=== PATIENT | female | born 1955 | race Caucasian/White ===

== ENCOUNTER 2016-09-06 16:52 | Emergency (ER) | payer OTHER ==
[~2016-09-06] VITALS: Wt 80.4 kg
[~2016-09-06 16:52] MED LIST: ALBU8.5H3 INH; LOSA50TA6 PO; MECL25TA2 PO; ONDA4TAB8 PO
[2016-09-06] MEDS ORDERED: ALBUTEROL 0.5% (NEB) 2.5 MG/0.5 ML AMP HHN STA (17:46)
[2016-09-06] MEDS ORDERED: KETOROLAC 30 MG INJ IM STA (17:46)
[2016-09-06] MEDS ORDERED: HYDROCODONE/APAP (5/325) TAB PO ONE (18:00)
[2016-09-06] MEDS ORDERED: predniSONE 20 MG TAB PO ONE (18:00)
--- NOTE | 2016-09-06 18:50 | RADRPT ---
PROCEDURE: XR Ribs. CLINICAL INDICATION: Blunt trauma to right ribs. TECHNIQUE: Four views of the chest and right ribs were obtained. COMPARISON: Chest x-ray 09/10/2015 FINDINGS: No rib fracture or other focal lesion is identified. The underlying lungs are unremarkable, without pleural effusion or pneumothorax seen. RPTAT:HJJR IMPRESSION: Unremarkable chest and right rib series. Jose Rivera Physician Date Time Electronically viewed and signed by Jose Rivera Physician on 09/06/2016 18:49 /
[2016-09-06] MEDS ORDERED: IBUP-1542 PO (19:13)
[2016-09-06] MEDS ORDERED: PRED20TA PO (19:13)
[2016-09-06] MEDS ORDERED: HYDR-906 PO (19:13)
[2016-09-06] MEDS ORDERED: ALBU18HF INHALATION (19:13)
--- NOTE | 2016-09-06 19:16 | ERD ---
ER Documentation Chief Complaint Date/Time DATE: 09/06/16 TIME: 19:15 Chief Complaint R SIDE RIB PAIN FROM BLUNT TRAUMA YESTERDAY. PAIN ON INSPIRATION HPI This 61-year-old female complains of right rib pain after leaning over and hitting a washing machine or doing laundry. She has a history of asthma and complains of wheezing as well. She denies any hemoptysis, fevers, anterior chest pain, abdominal pain. The pain is in her right lower ribs. ROS All systems reviewed and are negative except as per history of present illness. Medications Home Meds Active Scripts Albuterol Sulfate* (Ventolin HFA*) 18 Gm Hfa.aer.ad, 2 PUFF INHALATION Q4H, #1 INHALER Prov:OSEI BALLESTEROS MD 09/06/16 Prednisone* (Prednisone*) 20 Mg Tab, 40 MG PO DAILY for 4 Days, TAB Start September 07, 2016 Prov:OSEI BALLESTEROS MD 09/06/16 Hydrocodone/Acetaminophen ([place] 5-325 Tablet) 1 Each Tablet, 1 TAB PO Q6H Y for PAIN, #12 TAB Prov:OSEI BALLESTEROS MD 09/06/16 Ibuprofen* (Motrin*) 600 Mg Tab, 600 MG PO Q6, #18 TAB Prov:OSEI BALLESTEROS MD 09/06/16 Albuterol Sulfate* (Proair HFA*) 8.5 Gm Hfa.aer.ad, 2 PUFF INH Q4, #1 INHALER Prov:SHAI CLAY MD 09/10/15 Ondansetron Hcl* (Zofran*) 4 Mg Tablet, 4 MG PO Q6H for NAUSEA AND/OR VOMITING, #14 TAB Prov:SHAI CLAY MD 09/10/15 Meclizine Hcl* (Antivert*) 25 Mg Tablet, 25 MG PO Q6H for DIZZINESS, #20 TAB Prov:SHAI CLAY MD 09/10/15 Reported Medications Losartan Potassium* (Losartan Potassium*) 50 Mg Tablet, 50 MG PO DAILY 07/19/13 Allergies Allergies: Coded Allergies: ciprofloxacin (Verified Allergy, Unknown, 09/10/15) PMhx/Soc History of Surgery: Yes (APPENDECTOMY) Anesthesia Reaction: No Hx Neurological Disorder: No Hx Respiratory Disorders: Yes (ASTHMA) Hx Cardiac Disorders: No Hx Psychiatric Problems: No Hx Miscellaneous Medical Probl: Yes (HTN, FATTY LIVER,GASTRITIS) Hx Alcohol Use: No Hx Substance Use: No Hx Tobacco Use: No Smoking Status: Never smoker Physical Exam Vitals Vital Signs Date Time Temp Pulse Resp B/P Pulse Ox O2 Delivery O2 Flow Rate FiO2 09/06/16 18:06 84 20 96 21 09/06/16 17:24 98.5 81 20 141/83 96 Physical Exam Const: [] Alert, spa-hli-epmohuact per Head: Atraumatic Eyes: Normal Conjunctiva ENT: Normal External Ears, Nose and Mouth. Neck: Full range of motion..~ No meningismus. Resp: Scattered wheezing bilaterally. No rales. There are some tender on the right T10 rib area. There is no crepitance or bruising. Cardio: Regular rate and rhythm, no murmurs Abd: Soft, non tender, non distended. Normal bowel sounds Skin: No petechiae or rashes Back: No midline or flank tenderness Ext: No cyanosis, or edema Neur: Awake and alert Psych: Normal Mood and Affect Results 24 hrs Current Medications Medications (Trade) Dose Ordered Sig/Cyndie Route PRN Reason Start Time Stop Time Status Last Admin Dose Admin Prednisone (Prednisone) 60 mg ONCE ONCE PO 09/06/16 18:00 09/06/16 18:01 DC 09/06/16 18:00 Albuterol (Proventil 0.5% (Neb)) 5 mg ONCE STAT HHN 09/06/16 17:46 09/06/16 17:48 DC 09/06/16 18:05 Ketorolac Tromethamine (Toradol) 30 mg ONCE STAT IM 09/06/16 17:46 09/06/16 17:48 DC 09/06/16 18:00 Acetaminophen/ Hydrocodone Bitart ([place] (5/325)) 1 tab ONCE ONCE PO 09/06/16 18:00 09/06/16 18:01 DC 09/06/16 18:00 Procedures/MDM Patient was given prednisone 60 mg of mouth and albuterol treatment. Patient given [place] 5 mg by mouth and Toradol 30 mg IM X-ray right ribs 2V Interpreted by me: Soft Tissue: No acute abnormalities Bones: No acute abnormalities Mediastinum/Cardiac Silhouette/Lungs: [No acute abnormalities]. Impression- normal right rib x-ray Patient presents with asthma exacerbation and right rib contusion. Signs or symptoms do not suggest pulmonary embolism, pneumonia, fracture, respiratory distress, acute abdomen. She will treated a short course prednisone, [place], Ventolin and ibuprofen. The patient was stable with no new complaints during the ER course. Clinically, there is no current evidence to suggest meningitis, sepsis, acute abdomen, pneumonia, acute coronary syndrome, pulmonary embolism, or any other emergent condition appearing to require further evaluation or hospitalization. The patient should certainly return for any new or worsening symptoms per the aftercare instructions. They should otherwise follow-up with her primary care doctor for reevaluation this week. Departure Diagnosis: Primary Impression: Rib injury Additional Impression: Asthma exacerbation Condition: Stable Patient Instructions: Asthma, Acute (Adult), Rib Contusion Additional Instructions: X-ray normal. Cheque otro vez con diggs doctor primario en el proximo maldonado or regresa para mas o nueva simptomas. OSEI BALLESTEROS MD Sep 06, 2016 19:16
[2016-09-06 19:26] VITALS: BP 135/78; PULSE 86; RESP 20; TEMP 98.4
== END 2016-09-06 19:28 | disposition home or self-care (01) ==
LOC: FTE 16:52
DX: S29.9XXA Unspecified injury of thorax, initial encounter (principal); J45.901 Unspecified asthma with (acute) exacerbation; I10 Essential (primary) hypertension; W22.8XXA Striking against or struck by other objects, initial encounter; Y92.9 Unspecified place or not applicable
CPT/HCPCS: 71100; 94664; 96372; J1885; J7512; Z7502; Z7610

== ENCOUNTER 2017-05-26 19:49 | Inpatient (IN) | payer OTHER ==
[~2017-05-26] VITALS: Ht 154.9 cm; Wt 82.6 kg
[~2017-05-26 19:49] MED LIST changes: +ALBU18HF INHALATION; +HYDR-906 PO; +IBUP-1542 PO; +PRED20TA PO
[2017-05-26] MEDS ORDERED: KETOROLAC 30 MG INJ IV STA (20:59)
[2017-05-26] MEDS ORDERED: SOD CHLORIDE 0.9% 1,000 ML IV ONE (21:00)
--- NOTE | 2017-05-26 21:53 | RADRPT ---
PROCEDURE: XR Chest. CLINICAL INDICATION: Sepsis TECHNIQUE: Single frontal chest x-ray. COMPARISON: CR CHEST 09/06/2016 FINDINGS: No acute infiltrate, pleural effusion or pneumothorax is identified. Cardiomediastinal silhouette i s within normal limits. Aortic atherosclerotic calcification is noted. The osseous structures are u nremarkable. IMPRESSION: 1. No evidence of acute cardiopulmonary process. 2. Aortic atherosclerosis. RPTAT: HDWR .Juan Jose Guerra MD, MD Date Time Electronically viewed and signed by .Juan Jose Guerra MD, MD on 05/26/2017 21:53 .R/
[2017-05-26 22:10] LABS: ABNORMAL IP MESSAGE 1; BASOPHILS % 0.3 % (0.0-2.0); EOSINOPHILS # 0.4 10^3/ul (0.0-0.5); EOSINOPHILS % 3.7 % (0.0-7.0); HEMATOCRIT 43.5 % (37.0-47.0); HEMOGLOBIN 14.7 g/dl (12.0-16.0); LYMPHOCYTES # 0.5 10^3/ul (0.8-2.9); MEAN CORPUSCULAR HEMOGLOBIN 29.9 pg (29.0-33.0); MEAN CORPUSCULAR HGB CONC 33.8 g/dl (32.0-37.0); MEAN CORPUSCULAR VOLUME 88.6 fl (82.0-101.0); MEAN PLATELET VOLUME 12.4 fl (7.4-10.4); MONOCYTE # 0.6 10^3/ul (0.3-0.9); MONOCYTES % 6.6 % (0.0-11.0); NEUTROPHIL # 8.1 10^3/ul (1.6-7.5); NEUTROPHILS % 83.9 % (39.0-77.0); PLATELET COUNT 105 10^3/UL (140-415); RED BLOOD COUNT 4.91 10^6/ul (4.20-5.40); RED CELL DISTRIBUTION WIDTH 13.5 % (11.5-14.5); WHITE BLOOD COUNT 9.6 10^3/ul (4.8-10.8)
[2017-05-26 22:12] LABS: POSITIVE DIFF @See below
[2017-05-26 22:18] LABS: ADD UMIC YES; UR ASCORBIC ACID NEGATIVE (NEGATIVE); UR BILIRUBIN (Dip) NEGATIVE (NEGATIVE); UR BLOOD (Dip) NEGATIVE (NEGATIVE); UR CLARITY CLEAR (CLEAR); UR COLOR AMBER (YELLOW); UR GLUCOSE (Dip) NEGATIVE (NEGATIVE); UR KETONES (Dip) TRACE mg/dL (NEGATIVE); UR LEUKOCYTE ESTERASE (Dip) TRACE Leu/ul (NEGATIVE); UR MUCUS FEW /HPF (NONE SEEN); UR NITRITE (Dip) NEGATIVE (NEGATIVE); UR RBC 4 /HPF (0-5); UR SPECIFIC GRAVITY (Dip) 1.021 (1.003-1.030); UR SQUAMOUS EPITHELIAL CELL FEW /HPF (FEW); UR TOTAL PROTEIN (Dip) 1+ mg/dl (NEGATIVE); UR UROBILINOGEN (Dip) 2+ mg/dL (NEGATIVE)
[2017-05-26] MEDS ORDERED: CEFEPIME 2GM/50 ML (PMX) 50 ML IVPB ONE (22:30)
[2017-05-26 22:32] LABS: INR 1.18; PARTIAL THROMBOPLASTIN TIME 36.8 Sec (25.0-35.0); PROTIME 15.1 Sec (12.2-14.2); PT RATIO 1.2
[2017-05-26 22:36] LABS: ALANINE AMINOTRANSFERASE 63 IU/L (13-69); ALBUMIN 4.4 g/dl (3.3-4.9); ALBUMIN/GLOBULIN RATIO 1.29; ALKALINE PHOSPHATASE 95 IU/L (42-121); ANION GAP 18 (8-16); ASPARTATE AMINO TRANSFERASE 54 IU/L (15-46); BILIRUBIN,INDIRECT 1.2 mg/dl (0-1.1); BILIRUBIN,TOTAL 1.2 mg/dl (0.2-1.3); BLOOD UREA NITROGEN 7 mg/dl (7-20); CALCIUM 8.5 mg/dl (8.4-10.2); CARBON DIOXIDE 23 mmol/L (21-31); CHLORIDE 101 mmol/L (97-110); CREATININE 0.62 mg/dl (0.44-1.00); GLUCOSE 120 mg/dl (70-220); POTASSIUM 4.3 mmol/L (3.5-5.1); SODIUM 138 mmol/L (135-144); TOTAL PROTEIN 7.8 g/dl (6.1-8.1)
[2017-05-26 22:47] LABS: TROPONIN-I < 0.012 ng/ml (0.00-0.12)
--- NOTE | 2017-05-26 23:17 | ERD ---
ER Documentation Chief Complaint Chief Complaint headache/body aches/fever/cough since yesterday HPI This 62-year-old female presents with generalized body aches in her joints occluding a headache. Her primary care doctor sent her primarily for the headache. She is also had a cough for 2 days. She is also been on 2 different antibiotics for 2 weeks for urinary tract infection. She has had fevers and chills at home. She feels very "sick". She has not had any neurological symptoms. She has had no head trauma. ROS All systems reviewed and are negative except as per history of present illness. Medications Home Meds Active Scripts Albuterol Sulfate* (Ventolin HFA*) 18 Gm Hfa.aer.ad, 2 PUFF INHALATION Q4H, #1 INHALER Prov:OSEI BALLESTEROS MD 09/06/16 Prednisone* (Prednisone*) 20 Mg Tab, 40 MG PO DAILY for 4 Days, TAB Start September 07, 2016 Prov:OSEI BALLESTEROS MD 09/06/16 Hydrocodone/Acetaminophen ([place] 5-325 Tablet) 1 Each Tablet, 1 TAB PO Q6H Y for PAIN, #12 TAB Prov:OSEI BALLESTEROS MD 09/06/16 Ibuprofen* (Motrin*) 600 Mg Tab, 600 MG PO Q6, #18 TAB Prov:OSEI BALLESTEROS MD 09/06/16 Albuterol Sulfate* (Proair HFA*) 8.5 Gm Hfa.aer.ad, 2 PUFF INH Q4, #1 INHALER Prov:SHAI CLAY MD 09/10/15 Ondansetron Hcl* (Zofran*) 4 Mg Tablet, 4 MG PO Q6H for NAUSEA AND/OR VOMITING, #14 TAB Prov:SHAI CLAY MD 09/10/15 Meclizine Hcl* (Antivert*) 25 Mg Tablet, 25 MG PO Q6H for DIZZINESS, #20 TAB Prov:SHAI CLAY MD 09/10/15 Reported Medications Losartan Potassium* (Losartan Potassium*) 50 Mg Tablet, 50 MG PO DAILY 07/19/13 Allergies Allergies: Coded Allergies: ciprofloxacin (Verified Allergy, Unknown, 09/10/15) PMhx/Soc History of Surgery: Yes (APPENDECTOMY) Anesthesia Reaction: No Hx Neurological Disorder: No Hx Respiratory Disorders: Yes (ASTHMA) Hx Cardiac Disorders: No Hx Psychiatric Problems: No Hx Miscellaneous Medical Probl: Yes (HTN, FATTY LIVER,GASTRITIS, HERNIATED DISC ) Hx Alcohol Use: No Hx Substance Use: No Hx Tobacco Use: No Smoking Status: Never smoker Physical Exam Vitals Vital Signs Date Time Temp Pulse Resp B/P Pulse Ox O2 Delivery O2 Flow Rate FiO2 05/26/17 20:07 102.3 112 20 136/82 95 Physical Exam Const: [] Moderate distress, very uncomfortable Head: Atraumatic Eyes: Normal Conjunctiva EOMI, PERRLA ENT: Normal External Ears, Nose and Mouth. Neck: Full range of motion..~ No meningismus. Resp: Clear to auscultation bilaterally Cardio: Regular tachycardia, no murmurs Abd: Soft, non tender, non distended. Normal bowel sounds Skin: No petechiae or rashes, warm to the touch Back: No midline or flank tenderness Ext: No cyanosis, or edema Neur: Awake and alert and oriented 3, cranial nerves II 12 intact, no cerebellar deficits. Psych: Normal Mood and Affect Result Diagram: 05/26/17214605/26/172141 Results 24 hrs Laboratory Tests Test 05/26/17 19:18 05/26/17 21:42 05/26/17 21:47 Urine Color NOAH Urine Clarity CLEAR Urine pH 6.0 Urine Specific [place] 1.021 Urine Ketones TRACEmg/dL Urine Nitrite NEGATIVEmg/dL Urine Bilirubin NEGATIVEmg/dL Urine Urobilinogen 2+mg/dL Urine Leukocyte Esterase TRACELeu/ul Urine Microscopic RBC 4/HPF Urine Microscopic WBC 12/HPF Urine Squamous Epithelial Cells FEW/HPF Urine Mucus FEW/HPF Urine Hemoglobin NEGATIVEmg/dL Urine Glucose NEGATIVEmg/dL Urine Total Protein 1+mg/dl Prothrombin Time 15.1Sec Prothrombin Time Ratio 1.2 INR International Normalized Ratio 1.18 Activated Partial Thromboplast Time 36.8Sec Sodium Level 138mmol/L Potassium Level 4.3mmol/L Chloride Level 101mmol/L Carbon Dioxide Level 23mmol/L Anion Gap 18 Blood Urea Nitrogen 7mg/dl Creatinine 0.62mg/dl Glucose Level 120mg/dl Lactic Acid Level 3.0mmol/L Calcium Level 8.5mg/dl Total Bilirubin 1.2mg/dl Direct Bilirubin 0.00mg/dl Indirect Bilirubin 1.2mg/dl Aspartate Amino Transf (AST/SGOT) 54IU/L Alanine Aminotransferase (ALT/SGPT) 63IU/L Alkaline Phosphatase 95IU/L Troponin I < 0.012ng/ml Total Protein 7.8g/dl Albumin 4.4g/dl Globulin 3.40g/dl Albumin/Globulin Ratio 1.29 White Blood Count 9.610^3/ul Red Blood Count 4.9110^6/ul Hemoglobin 14.7g/dl Hematocrit 43.5% Mean Corpuscular Volume 88.6fl Mean Corpuscular Hemoglobin 29.9pg Mean Corpuscular Hemoglobin Concent 33.8g/dl Red Cell Distribution Width 13.5% Platelet Count 01526^3/UL Mean Platelet Volume 12.4fl Neutrophils % 83.9% Lymphocytes % 5.0% Monocytes % 6.6% Eosinophils % 3.7% Basophils % 0.3% Nucleated Red Blood Cells % 0.0/100WBC Neutrophils # 8.110^3/ul Lymphocytes # 0.510^3/ul Monocytes # 0.610^3/ul Eosinophils # 0.410^3/ul Basophils # 0.010^3/ul Nucleated Red Blood Cells # 0.010^3/ul Current Medications Medications (Trade) Dose Ordered Sig/Cyndie Route PRN Reason Start Time Stop Time Status Last Admin Dose Admin Sodium Chloride (NS) 1,000 ml @ 1,000 mls/hr Q1H ONCE IV 05/26/17 21:00 05/26/17 21:59 DC 05/26/17 21:54 Ketorolac Tromethamine 30 mg 30 mg ONCE STAT IV 05/26/17 20:59 05/26/17 21:01 DC 05/26/17 21:54 Cefepime HCl (Maxipime 2gm/50 ml (Pmx)) 50 ml @ 100 mls/hr ONCE ONCE IVPB 05/26/17 22:30 05/26/17 22:59 DC 05/26/17 22:44 Procedures/MDM UTI with sepsis and probable concomitant upper respiratory infection. Also severe headache. Patient was given more than 30 cc/kg of IV fluids started on cefepime. Cultures were taken lactate is elevated at 3. She initially given Toradol. I am also going perform a CT of her headache because she still has it. Given Benadryl and Reglan for headache cocktail. She is going to be admitted for IV antibiotics, urine culture to isolate the semi-resistant bacteria. Panel Dr. Cedeno is admitting. EKG interpretation sinus tachycardia rate of 114, left axis deviation, no ST or T-wave changes concerning for acute ischemia. a p manager interpretation: Sinus tachycardia followed by normal sinus rhythm no arrhythmias. Chest x-ray interpretation: I see no acute process. There is cardiomegaly. I see no infiltrate, no pneumothorax, no widened mediastinum, no fractures. Critical care time greater than 35 minutes: This includes treatment of UTI with sepsis and intractable headache, treatment of unstable vital signs, careful fluid administration, antibiotic therapy, multiple space bedside to reassess status and explained things to both herself and her , chart review, discussion with admitting doctor. This does not include any billable procedures Departure Diagnosis: Primary Impression: Failure of outpatient treatment Additional Impressions: Sepsis secondary to UTI URI, acute Lactic acidosis Acute headache Condition: Serious RY REEVES DO May 26, 2017 23:10
[2017-05-26] MEDS ORDERED: DIPHENHYDRAMINE 50 MG INJ IV ONE (23:30)
[2017-05-26] MEDS ORDERED: METOCLOPRAMIDE 10 MG INJ IV ONE (23:30)
[2017-05-27] MEDS ORDERED: ACETAMINOPHEN 325 MG TAB PO ONE (00:30)
[2017-05-27] MEDS ORDERED: LEVOFLOXACIN 750MG/D5W (PMX) 150 ML IVPB SCH (01:00)
[2017-05-27] MEDS ORDERED: ONDANSETRON 4 MG INJ IV PRN ×2 (01:00)
[2017-05-27] MEDS ORDERED: NACL 0.9% 3 ML SYG IV SCH (01:00)
[2017-05-27] MEDS ORDERED: MECLIZINE 25 MG TAB PO SCH (01:00)
[2017-05-27] MEDS ORDERED: ALBUTEROL HFA 8 GM INHALER INH SCH ×2 (01:00→21:00)
[2017-05-27] MEDS ORDERED: ACETAMINOPHEN 325 MG TAB PO PRN ×2 (01:00)
[2017-05-27] MEDS ORDERED: KETOROLAC 30 MG INJ IV PRN (01:00)
[2017-05-27] MEDS ORDERED: PROVENTIL HFA 6.7GM INHALER INH SCH (01:00)
--- NOTE | 2017-05-27 01:07 | HP ---
Date/Time of Note Date/Time of Note DATE: 05/27/17 TIME: 00:57 Assessment/Plan VTE Prophylaxis VTE Prophylaxis Intervention: SCD's Assessment/Plan Chief Complaint/Hosp Course This is a 62 F who is being admitted to the med surg floor for: #1 Sepsis: Initial lactate was 3.0 which subsequently improved to 1.1 with fluids and abx. At the current time on Cefepime in the ED will continue this as patient is allergic to cipro and she failed outpatient treatment for uti though the medications were not able to be confirmed at this time. She also has upper respiratory symptoms. Her influenza panel is negative. No signs of PNA. Will await results of blood and urine cultures. Chest x-ray is normal. #2 UTI: Patient denies any current urinary symptoms. She does have trace leukocytes in the urine. Will check a urine culture. Continue cefepime at this time. Await blood and urine cultures. #3 headache: CT of the head is negative. We could be secondary to patient underlying infection. She reported improvement of the headache with Toradol and Tylenol. Will continue monitor this for now. No new focal neurological signs at this time. #4 asthma: Patient is currently not wheezing. We will continue patient's home inhalers. Chest x-ray is within normal values. Patient could also have a possibly of underlying viral illness such as a bronchitis and she does report a cough. Will continue to monitor this. She is already on cefepime and if any signs of any bacterial upper respiratory infection will initiate antibiotics as indicated. #5 HTN: We will continue patient home medication. #6 transaminitis: This likely could be stress/infection related we will nonetheless obtain right upper quadrant ultrasound continue to monitor liver function tests. #7 DVT GI prophylaxis: SCDs, no GI prophylaxis indicated. Further treatment strategy will be implemented as per the clinical course. Problems: HPI/ROS Admit Date/Time Admit Date/Time Hx of Present Illness cc: headache, subjective fever This 62-year-old female presents with generalized body aches in her joints and a headache. Her primary care doctor sent her primarily for the headache. She is also had a cough for 2 days. She is also been on 2 different antibiotics for 2 weeks for urinary tract infection. She has had fevers and chills at home. She feels very "sick". She has not had any neurological symptoms. She has had no head trauma. She does not recall which antibiotics she took for the UTI. Allergies: ciprofloxacin Medications: See SEP ROS Const: As per HPI Eyes : No pain discharge or redness or change in visual acuity ENT: No pain, sore throat, congestion, congestion, dysphagia or discharge Respiratory: As per HPI Cardiovascular: No chest pain, palpitation, PND, or edema GI : no change in appetite, abdominal pain, nausea, vomiting, diarrhea, constipation, or change in the color his stool Genitourinary: No dysuria, hematuria, flank pain , discharge or CVA tenderness Musculoskeletal: No joint pain, back pain, neck pain, restricted range of motion in neck or joints Skin: No rash, bruising or hives Neuro: No headache, dizziness, syncope, seizure, focal weakness Endocrine: No polyuria, polydipsia, temperature intolerance Psych: No hallucination, depression, anxiety or suicidal ideation PMH/Family/Social Past Medical History asthma, htn, gastritis, lumbar disc disorder Past Surgical History appendicitis Family History Significant Family History: cancer (colon ca: mom, ), hypertension Social History Alcohol Use: none Smoking Status: Never smoker Drug Use: none Exam/Review of Systems Vital Signs Vitals Vital Signs Date Time Temp Pulse Resp B/P Pulse Ox O2 Delivery O2 Flow Rate FiO2 05/26/17 23:21 100.5 106 24 118/78 92 Room Air Exam Exam General: Patient is well-developed female sitting in bed in no acute distress HEENT: Atraumatic, normocephalic. The pupils are equal, round and reactive. Extraocular motor are intact Neck: Supple with full range of motion. No rigidity or meningismus Chest: Nontender Lungs: Clear to auscultation bilaterally no crackles rales or wheezing Heart: Normal S1-S2, Regular rhythm and rate. No murmur, S3, or S4 Abdomen: Soft , nontender, nondistended , bowel sounds are present. No guarding no rebound tenderness , No masses or organomegaly. No costovertebral temporal angle mass Extremities: Normal to inspection, no edema no cyanosis Neurologic: Normal mental status, speech normal, cranial nerves II through XII are intact, motor and sensory are intact, no focal weakness Additional Comments PROCEDURE: Noncontrast CT Head. CLINICAL INDICATION: Headache. TECHNIQUE: Noncontrast CT of the head was obtained. The administered radiation dose was CTDI vol = 44 mGy, DLP = 720 mGy-cm. One or more of the following dose reduction techniques were used: automated exposure control, adjustment of the mA and/or kV according to patient size and/or use of iterative reconstruction technique. DICOM images are available. COMPARISON: 09/10/2015 FINDINGS: The ventricles and cortical sulci are mild to moderately enlarged. There is mild to moderate decreased attenuation within the periventricular and subcortical white matter compatible with chronic microvascular changes. There is no acute intracranial hemorrhage or extra-axial fluid collection. There is no mass effect. No midline shift is identified. There is no loss of wilson-white differentiation to suggest acute infarction. The orbits are within normal limits. The paranasal sinuses are well aerated. No destructive osseous lesion is identified. IMPRESSION: No acute findings. Mild to moderate diffuse parenchymal volume loss and chronic microvascular changes. RPTAT: HIKT .Rolando Brady MD, Date Time Electronically viewed and signed by .Rolando Brady MD, on 05/27/2017 01:12 .T/ CC: RY REEVES DO PROCEDURE: XR Chest. CLINICAL INDICATION: Sepsis TECHNIQUE: Single frontal chest x-ray. COMPARISON: CR CHEST 09/06/2016 FINDINGS: No acute infiltrate, pleural effusion or pneumothorax is identified. Cardiomediastinal silhouette is within normal limits. Aortic atherosclerotic calcification is noted. The osseous structures are unremarkable. IMPRESSION: 1. No evidence of acute cardiopulmonary process. 2. Aortic atherosclerosis. RPTAT: HDWR .Juan Jose Guerra MD, Date Time Electronically viewed and signed by .Juan Jose Guerra MD, on 05/26/2017 21: 53 .R/ CC: DANIEL ESTRADA NP PROCEDURE: US Abdomen. CLINICAL INDICATION: Right upper quadrant Abdominal pain. Abnormal laboratory values. TECHNIQUE: Multiple real-time images were acquired of the patient's abdomen and retroperitoneum utilizing a high resolution transducer. COMPARISON: None FINDINGS: The liver demonstrates normal echogenicity and size and no focal lesions are seen. The liver measures 16 cm. No gallstones are identified within the gallbladder. There is no pericholecystic fluid or gallbladder wall thickening. No intra or extrahepatic biliary dilatation is seen. The common bile duct measures 3 mm in maximal dimension. The pancreas is not seen. The right kidney is unremarkable measuring 10 cm. No collecting system dilatation, stone or solid mass. IMPRESSION: Unremarkable examination. RPTAT: PP .Alexia Archer MD, MD Date Time Electronically viewed and signed by .Alexia Archer MD, MD on 05/27/2017 09:18 .F/ CC: JODI LESTER EKG interpretation sinus tachycardia rate of 114, left axis deviation, no ST or T-wave changes concerning for acute ischemia. As per ED physician documentation Labs Result Diagram: 05/26/17214605/26/172141 BIB LESTER May 27, 2017 01:07
--- NOTE | 2017-05-27 01:13 | RADRPT ---
PROCEDURE: Noncontrast CT Head. CLINICAL INDICATION: Headache. TECHNIQUE: Noncontrast CT of the head was obtained. The administered radiation dose was CTDI vol = 44 mGy, DLP = 720 mGy-cm. One or more of the following dose reduction techniques were used: automate d exposure control, adjustment of the mA and/or kV according to patient size and/or use of iterative reconstruction technique. DICOM images are available. COMPARISON: 09/10/2015 FINDINGS: The ventricles and cortical sulci are mild to moderately enlarged. There is mild to moderate decrea sed attenuation within the periventricular and subcortical white matter compatible with chronic micr ovascular changes. There is no acute intracranial hemorrhage or extra-axial fluid collection. There is no mass effect . No midline shift is identified. There is no loss of wilson-white differentiation to suggest acute in farction. The orbits are within normal limits. The paranasal sinuses are well aerated. No destructive osseous lesion is identified. IMPRESSION: No acute findings. Mild to moderate diffuse parenchymal volume loss and chronic microvascular hernandez es. RPTAT: HIKT .Rolando Brady MD, MD Date Time Electronically viewed and signed by .oRlando Brady MD, on 05/27/2017 01:12 .T/
[2017-05-27] MEDS ORDERED: ALBUTEROL HFA 8 GM INHALER INH PRN (01:30)
[2017-05-27] MEDS ORDERED: SOD CHLORIDE 0.9% 1,000 ML IV ONE (01:30)
[2017-05-27 01:39] VITALS: TEMP 99.4
[2017-05-27 03:00] VITALS: Ht 154.9 cm; Wt 82.6 kg
[2017-05-27] MEDS ORDERED: FLUT1BLS INHALATION (03:15)
[2017-05-27] MEDS ORDERED: TIOT18CA INHALATION (03:15)
[2017-05-27 06:22] LABS: ABNORMAL IP MESSAGE 1; BASOPHILS % 0.2 % (0.0-2.0); EOSINOPHILS # 0.4 10^3/ul (0.0-0.5); EOSINOPHILS % 7.4 % (0.0-7.0); HEMATOCRIT 35.7 % (37.0-47.0); LYMPHOCYTES # 0.4 10^3/ul (0.8-2.9); LYMPHOCYTES % 7.2 % (15.0-51.0); MEAN CORPUSCULAR HEMOGLOBIN 29.9 pg (29.0-33.0); MEAN CORPUSCULAR HGB CONC 33.6 g/dl (32.0-37.0); MEAN CORPUSCULAR VOLUME 88.8 fl (82.0-101.0); MEAN PLATELET VOLUME 12.3 fl (7.4-10.4); MONOCYTE # 0.7 10^3/ul (0.3-0.9); MONOCYTES % 11.2 % (0.0-11.0); NEUTROPHIL # 4.3 10^3/ul (1.6-7.5); NEUTROPHILS % 73.1 % (39.0-77.0); PLATELET COUNT 97 10^3/UL (140-415); RED BLOOD COUNT 4.02 10^6/ul (4.20-5.40); RED CELL DISTRIBUTION WIDTH 13.8 % (11.5-14.5); WHITE BLOOD COUNT 5.8 10^3/ul (4.8-10.8)
[2017-05-27 07:06] LABS: ALBUMIN 3.1 g/dl (3.3-4.9); ALBUMIN/GLOBULIN RATIO 1.1; BILIRUBIN,INDIRECT 0.6 mg/dl (0-1.1); BILIRUBIN,TOTAL 0.6 mg/dl (0.2-1.3); CALCIUM 7.9 mg/dl (8.4-10.2); CHOL/HDL RATIO 3.1 RATIO; CREATININE 0.59 mg/dl (0.44-1.00); MAGNESIUM 1.8 mg/dl (1.7-2.5); POTASSIUM 3.7 mmol/L (3.5-5.1); TOTAL PROTEIN 5.9 g/dl (6.1-8.1)
[2017-05-27 07:24] LABS: POSITIVE DIFF @See below
[2017-05-27 07:27] VITALS: BP 109/70; RESP 16
[2017-05-27 08:02] LABS: THYROID STIMULATING HORMONE 1.98 MIU/L (0.465-4.680)
--- NOTE | 2017-05-27 09:18 | RADRPT ---
AMENDMENT: 05/27/2017 9:34:09 AM Alexia Archer Md Upon further review, the liver does have a nodular contour suggesting early cirrhosis. PROCEDURE: US Abdomen. CLINICAL INDICATION: Right upper quadrant Abdominal pain. Abnormal laboratory values. TECHNIQUE: Multiple real-time images were acquired of the patient's abdomen and retroperitoneum ut ilizing a high resolution transducer. COMPARISON: None FINDINGS: The liver demonstrates normal echogenicity and size and no focal lesions are seen. The liver measure s 16 cm. No gallstones are identified within the gallbladder. There is no pericholecystic fluid or gallbladd er wall thickening. No intra or extrahepatic biliary dilatation is seen. The common bile duct measu res 3 mm in maximal dimension. The pancreas is not seen. The right kidney is unremarkable measuring 10 cm. No collecting system dilatation, stone or solid ma ss. IMPRESSION: Unremarkable examination. RPTAT: PP .Alexia Archer MD, MD Date Time Electronically viewed and signed by .Alexia Archer MD, MD on 05/27/2017 09:33 .F/
[2017-05-27] MEDS: CEFEPIME 2GM/50 ML (PMX) 50 ML IVPB SCH ×2 (09:30→21:01)
[2017-05-27] MEDS: LOSARTAN 50 MG TAB PO SCH (09:30)
[2017-05-27] MEDS: TIOTROPIUM 18 MCG CAPSULE INHA DEV INH SCH (09:30)
[2017-05-27 14:43] VITALS: BP 115/73; RESP 16
[2017-05-27] MEDS ORDERED: [UNRECOGNIZED DRUG - REMARK] XX SCH (15:00)
[2017-05-27 20:30] VITALS: BP 115/71; PULSE 98; RESP 18
[2017-05-28 03:54] VITALS: BP 108/67; PULSE 89; RESP 17
[2017-05-28 06:02] LABS: BASOPHILS % 0.2 % (0.0-2.0); EOSINOPHILS # 0.5 10^3/ul (0.0-0.5); EOSINOPHILS % 11.3 % (0.0-7.0); HEMATOCRIT 35.8 % (37.0-47.0); LYMPHOCYTES % 20.3 % (15.0-51.0); MEAN CORPUSCULAR HEMOGLOBIN 29.7 pg (29.0-33.0); MEAN CORPUSCULAR HGB CONC 33.5 g/dl (32.0-37.0); MEAN CORPUSCULAR VOLUME 88.6 fl (82.0-101.0); MEAN PLATELET VOLUME 12.3 fl (7.4-10.4); MONOCYTE # 0.6 10^3/ul (0.3-0.9); MONOCYTES % 12.2 % (0.0-11.0); NEUTROPHIL # 2.6 10^3/ul (1.6-7.5); NEUTROPHILS % 55.6 % (39.0-77.0); PLATELET COUNT 112 10^3/UL (140-415); RED BLOOD COUNT 4.04 10^6/ul (4.20-5.40); RED CELL DISTRIBUTION WIDTH 13.8 % (11.5-14.5); WHITE BLOOD COUNT 4.7 10^3/ul (4.8-10.8)
[2017-05-28 06:14] LABS: CALCIUM 8.4 mg/dl (8.4-10.2); CREATININE 0.62 mg/dl (0.44-1.00); POTASSIUM 3.9 mmol/L (3.5-5.1)
[2017-05-28 06:15] LABS: PHOSPHORUS 3.2 mg/dl (2.5-4.9)
[2017-05-28] MEDS: TIOTROPIUM 18 MCG CAPSULE INHA DEV INH SCH (08:31)
[2017-05-28] MEDS: CEFEPIME 2GM/50 ML (PMX) 50 ML IVPB SCH (08:32)
[2017-05-28] MEDS: LOSARTAN 50 MG TAB PO SCH (08:33)
[2017-05-28] MEDS ORDERED: BREO XX SCH (09:00)
--- NOTE | 2017-05-28 12:55 | PDOCDIS ---
Discharge Instructions DIAGNOSIS Discharge Diagnosis Systemic inflammatory response syndrome with positive urinalysis and negative urine culture. CONDITION Patient Condition: Stable OTHER ORDERS: Other Orders: 1. Resume home medications. 2. Hydrate yourself adequately. Take a regular, preferably low-cholesterol diet. 3. Follow-up with your stripe matcher as scheduled. 4. Follow-up with her primary care physician in 2 weeks. 5. Please go to the nearest emergency room if he continues to have persistent fevers, frequent urination, burning with urination, or any unusual signs/ symptoms. AMANDA LANDRY NP May 28, 2017 12:55
[2017-05-28] MEDS ORDERED: TRAM-40 PO (13:42)
--- NOTE | 2017-05-28 17:51 | DS ---
Date/Time of Note Date/Time of Note DATE: 05/28/17 TIME: 17:49 Discharge Summary Admission/Discharge Info Admit Date/Time May 27, 2017 at 00:46 Discharge Date/Time May 28, 2017 at 14:25 Discharge Diagnosis 1. Status post systemic inflammatory response syndrome. 2. Essential hypertension. 3. Thrombocytopenia. 4. Asthma. Patient Condition: Stable Procedures Liver US IMPRESSION: Unremarkable examination. Brain CT IMPRESSION: No acute findings. Mild to moderate diffuse parenchymal volume loss and chronic microvascular changes. CXR IMPRESSION: 1. No evidence of acute cardiopulmonary process. 2. Aortic atherosclerosis. Hx of Present Illness CC: Headache, subjective fever This 62-year-old female presented with generalized body aches in her joints and a headache. Her primary care doctor sent her primarily for the headache. She is also had a cough for 2 days. She is also has been on 2 different antibiotics for 2 weeks for urinary tract infection. She has had fevers and chills at home. She felt very "sick". She has not had any neurological symptoms. She has had no head trauma. Allergies: Ciprofloxacin Medications: See [facility] Hospital Course The patient was admitted to inpatient setting. The patient was started on empiric antibiotics. Pancultures were ordered. The patient's santos cultures remain negative. The patient's urine culture was inconclusive although the patient had positive urinalysis. Patient denied any urinary symptoms. The patient's antibiotics will be discontinued. The patient's febrile illness could have been from any viral etiologies. Nevertheless, the patient's influenza A and B was negative. The patient's brain CT scan was negative for any acute findings. The patient did not have any episodes of headache during the hospital course. The patient's chronic problems include essential hypertension. She was maintained on antihypertensives for the same. The patient's blood pressure was well controlled throughout the hospital course. The patient was noticed to have minimal transaminitis on admission. This was resolved over the course of her hospital stay. The patient's liver ultrasound was essentially negative. The patient was noticed to have underlying thrombocytopenia. As per the patient she has an appointment with outpatient gastroenterology on 06/05/2017. The patient did not have any acute gastrointestinal problems that warranted inpatient gastroenterology consult. The patient has underlying asthma. She was maintained on inhaled bronchodilators. She had no evidence of any asthma exacerbation. The patient had a stable hospital course. The patient is stable to be discharged home to be followed up with outpatient primary care physician as well as a outpatient anesthesiology faculty as scheduled on 06/05/2017. Discharge Instructions 1. Resume home medications. 2. Hydrate yourself adequately. Take a regular, preferably low-cholesterol diet. 3. Follow-up with your anesthesiology faculty as scheduled. 4. Follow-up with her primary care physician in 2 weeks. 5. Please go to the nearest emergency room if he continues to have persistent fevers, frequent urination, burning with urination, or any unusual signs/ symptoms. The patient verbalized understanding of her discharge instructions. Case discussed with Dr. Schwab. Home Meds Active Scripts Tramadol Hcl* (Ultram*) 50 Mg Tablet, 50 MG PO Q6H Y for PAIN, #14 TAB Prov:AMANDA LANDRY NP 05/28/17 Albuterol Sulfate* (Ventolin HFA*) 18 Gm Hfa.aer.ad, 2 PUFF INHALATION Q4H, #1 INHALER Prov:OSEI BALLESTEROS MD 09/06/16 Reported Medications Tiotropium Palisade* (Spiriva*) 18 Mcg Cap.w.dev, 1 CAP INHALATION DAILY, #30 CAP 05/27/17 Fluticasone/Vilanterol (Breo Ellipta 200-25 Mcg INH) 1 Each Blst.w.dev, 1 PUFF INHALATION DAILY, #1 INHALER 05/27/17 Losartan Potassium* (Losartan Potassium*) 50 Mg Tablet, 50 MG PO DAILY 07/19/13 Discontinued Scripts Prednisone* (Prednisone*) 20 Mg Tab, 40 MG PO DAILY for 4 Days, TAB Start September 07, 2016 Prov:OSEI BALLESTEROS MD 09/06/16 Hydrocodone/Acetaminophen (Paris 5-325 Tablet) 1 Each Tablet, 1 TAB PO Q6H Y for PAIN, #12 TAB Prov:OSEI BALLESTEROS MD 09/06/16 Ibuprofen* (Motrin*) 600 Mg Tab, 600 MG PO Q6, #18 TAB Prov:OSEI BALLESTEROS MD 09/06/16 Albuterol Sulfate* (Proair HFA*) 8.5 Gm Hfa.aer.ad, 2 PUFF INH Q4, #1 INHALER Prov:SHAI CLAY MD 3/3/16 Ondansetron Hcl* (Zofran*) 4 Mg Tablet, 4 MG PO Q6H for NAUSEA AND/OR VOMITING, #14 TAB Prov:SHAI CLAY MD 09/10/15 Meclizine Hcl* (Antivert*) 25 Mg Tablet, 25 MG PO Q6H for DIZZINESS, #20 TAB Prov:SHAI CLAY MD 09/10/15 Follow-up Plan The patient has outpatient follow-up with gastroenterology on 06/05/2017. The patient was instructed to follow-up with her primary care physician in the next 2 weeks. Primary Care Provider Kip Spencer Time spent on discharge: 40 Pending Labs Name: ALFREDO SEAY Age/Sex: 62/F Attend Dr: RY REEVES DO Acct: [id number] MR# : [id number] : 1955 Location: [facility] Admit: 05/26/17 Specimen: [id number] Status: Complete Liliana: 05/26/17 Rcvd: 05/26 Source: [facility] Descrip: Procedure Result Microbiology INFLUENZA A & B BY EIA Final INFLU A&B BY EIA INFLUENZA A NEGATIVE (Ref Range Neg) INFLUENZA B NEGATIVE (Ref Range Neg) Name: ALFREDO SEAY Age/Sex: 62/F Attend Dr: BIB LESTER Acct: [id number] MR# : [id number] : 1955 Location: [facility] Admit: 05/27/17 Specimen: [id number] Status: Resulted Liliana: 05/26/17-1918 Rcvd: 05/27-650 Source: [facility] FIELDS Sp Descrip: Procedure Result Microbiology URINE CULTURE Preliminary Organism 1 MIXED GRAM POSITIVE ORGANISMS COLONY COUNT 10,000 - 20,000 CFU/ml Laboratory Tests Test 05/28/17 04:55 05/28/17 04:56 Sodium Level 143mmol/L (135-144) Potassium Level 3.9mmol/L (3.5-5.1) Chloride Level 111mmol/L (97-110) Carbon Dioxide Level 23mmol/L (21-31) Anion Gap 13 (8-16) Blood Urea Nitrogen 14mg/dl (7-20) Creatinine 0.62mg/dl (0.44-1.00) Glucose Level 105mg/dl (70-220) Calcium Level 8.4mg/dl (8.4-10.2) White Blood Count 4.710^3/ul (4.8-10.8) Red Blood Count 4.0410^6/ul (4.20-5.40) Hemoglobin 12.0g/dl (12.0-16.0) Hematocrit 35.8% (37.0-47.0) Mean Corpuscular Volume 88.6fl (82.0-101.0) Mean Corpuscular Hemoglobin 29.7pg (29.0-33.0) Mean Corpuscular Hemoglobin Concent 33.5g/dl (32.0-37.0) Red Cell Distribution Width 13.8% (11.5-14.5) Platelet Count 62538^3/UL (140-415) Mean Platelet Volume 12.3fl (7.4-10.4) Neutrophils % 55.6% (39.0-77.0) Lymphocytes % 20.3% (15.0-51.0) Monocytes % 12.2% (0.0-11.0) Eosinophils % 11.3% (0.0-7.0) Basophils % 0.2% (0.0-2.0) Nucleated Red Blood Cells % 0.0/100WBC (0.0-0.0) Neutrophils # 2.610^3/ul (1.6-7.5) Lymphocytes # 1.010^3/ul (0.8-2.9) Monocytes # 0.610^3/ul (0.3-0.9) Eosinophils # 0.510^3/ul (0.0-0.5) Basophils # 0.010^3/ul (0.0-0.1) Nucleated Red Blood Cells # 0.010^3/ul (0.0-0.0) Phosphorus Level 3.2mg/dl (2.5-4.9) Magnesium Level 2.0mg/dl (1.7-2.5) AMANDA LANDRY NP May 28, 2017 17:51
== END 2017-05-28 14:25 | disposition home or self-care (01) | DRG 690 ==
LOC: FTE 19:49 → MS2 05-27 00:46
PROVIDERS: ADMIT Family Medicine; ATTEND Family Medicine
DX: N39.0 Urinary tract infection, site not specified (principal); R65.10 Systemic inflammatory response syndrome (SIRS) of non-infectious origin without acute organ dysfunction; I10 Essential (primary) hypertension; R51 Headache; J45.909 Unspecified asthma, uncomplicated; J06.9 Acute upper respiratory infection, unspecified
CPT/HCPCS: 36415; 70450; 71010; 76705; 80048; 80053; 80061; 81001; 83036; 83605; 83735; 84100; 84443; 84484; 85025; 85610; 85730; 87040; 87086; 87400; 93005; 96374; 96375; J0692; J1200; J1885; J2765; J7030